=== PATIENT | male | born 1935 | race Caucasian/White ===

== ENCOUNTER 2017-08-28 10:09 | Inpatient (IN) | payer MEDICARE, OTHER ==
[2017-08-28] MEDS: LACTATED RINGER'S 1,000 ML IV (11:12)
[2017-08-28] MEDS: SOD CHLORIDE 0.9% 1,000 ML IV ×2 (11:12→14:01)
[2017-08-28 11:14] LABS: ADD MAN DIFF? NO
[2017-08-28 11:28] LABS: ABNORMAL IP MESSAGE 1; BASOPHILS % 0.1 % (0.0-2.0); LYMPHOCYTES # 0.6 10^3/ul (0.8-2.9); MEAN CORPUSCULAR HEMOGLOBIN 27.1 pg (29.0-33.0); MEAN CORPUSCULAR HGB CONC 32.7 g/dl (32.0-37.0); MEAN CORPUSCULAR VOLUME 82.8 fl (82.0-101.0); MEAN PLATELET VOLUME 9.6 fl (7.4-10.4); MONOCYTES % 8.4 % (0.0-11.0); NEUTROPHIL # 10.2 10^3/ul (1.6-7.5); NEUTROPHILS % 86.2 % (39.0-77.0); PLATELET COUNT 331 10^3/UL (140-415); POSITIVE DIFF @See below; RED BLOOD COUNT 6.64 10^6/ul (4.70-6.10); RED CELL DISTRIBUTION WIDTH 15.4 % (11.5-14.5)
[2017-08-28 11:28] LABS: WHITE BLOOD COUNT 11.8 10^3/ul (4.8-10.8)
[2017-08-28 11:36] LABS: INR 1.21; PROTIME 15.5 Sec (11.9-14.9); PT RATIO 1.2
[2017-08-28 11:37] LABS: PARTIAL THROMBOPLASTIN TIME 31.8 Sec (25.0-35.0)
[2017-08-28] MEDS: AZTREONAM 1 GM/NS (PMX) 50 ML IVPB (11:38)
[2017-08-28 11:49] LABS: LACTIC ACID 3.1 mmol/L (0.5-2.0)
[2017-08-28 11:52] LABS: ALANINE AMINOTRANSFERASE 28 IU/L (13-69); ALBUMIN 4.2 g/dl (3.3-4.9); ALKALINE PHOSPHATASE 102 IU/L (42-121); ANION GAP 21 (8-16); ASPARTATE AMINO TRANSFERASE 78 IU/L (15-46); BILIRUBIN,INDIRECT 0.9 mg/dl (0-1.1); BILIRUBIN,TOTAL 0.9 mg/dl (0.2-1.3); BLOOD UREA NITROGEN 43 mg/dl (7-20); CALCIUM 9.9 mg/dl (8.4-10.2); CARBON DIOXIDE 23 mmol/L (21-31); CHLORIDE 107 mmol/L (97-110); CREATINE KINASE 811 IU/L (23-200); CREATININE 1.16 mg/dl (0.61-1.24); GLUCOSE 139 mg/dl (70-220); SODIUM 147 mmol/L (135-144); TOTAL PROTEIN 8.4 g/dl (6.1-8.1)
[2017-08-28 12:03] LABS: TROPONIN-I 0.023 ng/ml (0.000-0.120)
[2017-08-28 12:21] LABS: ADD UMIC YES; UR ASCORBIC ACID NEGATIVE (NEGATIVE); UR BILIRUBIN (Dip) NEGATIVE (NEGATIVE); UR BLOOD (Dip) 3+ mg/dL (NEGATIVE); UR CLARITY SLIGHTLY CLOUDY (CLEAR); UR COLOR YELLOW (YELLOW); UR GLUCOSE (Dip) NEGATIVE (NEGATIVE); UR KETONES (Dip) 1+ mg/dL (NEGATIVE); UR LEUKOCYTE ESTERASE (Dip) NEGATIVE Leu/ul (NEGATIVE); UR MUCUS FEW /HPF (NONE SEEN); UR NITRITE (Dip) NEGATIVE (NEGATIVE); UR RBC > 182 /HPF (0-5); UR SPECIFIC GRAVITY (Dip) 1.023 (1.003-1.030); UR TOTAL PROTEIN (Dip) 1+ mg/dl (NEGATIVE); UR UROBILINOGEN (Dip) 1+ mg/dL (NEGATIVE); UR WBC 6 /HPF (0-5)
[2017-08-28] MEDS: VANCOMYCIN 1 GM (PMX) 250 ML IVPB (12:49)
[2017-08-28] MEDS ORDERED: ACETAMINOPHEN 325 MG TAB PO ×2 (13:00→14:30)
[2017-08-28] MEDS ORDERED: ONDANSETRON 4 MG INJ IV (13:00)
[2017-08-28] MEDS ORDERED: VANCOMYCIN IV PER PHARMACY XX (14:30)
[2017-08-28] MEDS ORDERED: NACL 0.9% 3 ML SYG IV (14:30)
[2017-08-28] MEDS ORDERED: ACETAMINOPHEN 650 MG SUPP PR (14:30)
[2017-08-28] MEDS ORDERED: HYDROCODONE/APAP (5/325) TAB PO ×2 (14:30)
[2017-08-28] MEDS ORDERED: DOCUSATE SODIUM 100 MG CAP PO (14:30)
[2017-08-28] MEDS ORDERED: MAGNESIUM HYDROXIDE 30ML CUP PO (14:30)
[2017-08-28] MEDS: CEFEPIME 1GM/50 ML (PMX) 50 ML IVPB ×2 (15:00→22:53)
[2017-08-28 15:28] LABS: CREATINE KINASE 656 IU/L (23-200)
[2017-08-28 15:28] LABS: B-TYPE NATRIURETIC PEPTIDE 838 PG/ML (0-450)
[2017-08-28 15:35] LABS: LACTIC ACID 2.4 mmol/L (0.5-2.0)
[2017-08-28] MEDS: VANCOMYCIN 750 MG in DEXTROSE 5% 150 ML IVPB (17:29)
[2017-08-28] MEDS: SOD CHLORIDE 0.45% 1,000 ML IV (17:30)
[2017-08-28 18:11] LABS: LACTIC ACID 1.9 mmol/L (0.5-2.0)
[2017-08-28] MEDS ORDERED: CLOTRIMAZOLE 10 MG TROCHE MT (21:00)
[2017-08-28] MEDS: CLOTRIMAZOLE 10 MG TROCHE MT (22:58)
[2017-08-29 06:08] LABS: ADD MAN DIFF? NO
[2017-08-29 06:11] LABS: BASOPHILS % 0.2 % (0.0-2.0); EOSINOPHILS % 0.3 % (0.0-7.0); HEMATOCRIT 45.9 % (42.0-52.0); HEMOGLOBIN 14.7 g/dl (14.0-18.0); LYMPHOCYTES # 1.2 10^3/ul (0.8-2.9); LYMPHOCYTES % 12.5 % (15.0-51.0); MEAN CORPUSCULAR HEMOGLOBIN 26.9 pg (29.0-33.0); MEAN CORPUSCULAR VOLUME 83.9 fl (82.0-101.0); MEAN PLATELET VOLUME 9.1 fl (7.4-10.4); MONOCYTES % 11.1 % (0.0-11.0); NEUTROPHILS % 75.6 % (39.0-77.0); PLATELET COUNT 279 10^3/UL (140-415); RED BLOOD COUNT 5.47 10^6/ul (4.70-6.10); RED CELL DISTRIBUTION WIDTH 14.2 % (11.5-14.5)
[2017-08-29 06:11] LABS: WHITE BLOOD COUNT 9.3 10^3/ul (4.8-10.8)
[2017-08-29] MEDS: SOD CHLORIDE 0.45% 1,000 ML IV ×2 (06:19→11:00)
[2017-08-29 06:30] LABS: CREATINE KINASE 483 IU/L (23-200)
[2017-08-29 06:31] LABS: LACTIC ACID 1.1 mmol/L (0.5-2.0)
[2017-08-29 06:34] LABS: MAGNESIUM 2.2 mg/dl (1.7-2.5)
[2017-08-29 06:34] LABS: PHOSPHORUS 2.9 mg/dl (2.5-4.9)
[2017-08-29 06:35] LABS: ALANINE AMINOTRANSFERASE 31 IU/L (13-69); ALKALINE PHOSPHATASE 73 IU/L (42-121); ANION GAP 12 (8-16); ASPARTATE AMINO TRANSFERASE 60 IU/L (15-46); BLOOD UREA NITROGEN 29 mg/dl (7-20); CALCIUM 8.7 mg/dl (8.4-10.2); CARBON DIOXIDE 24 mmol/L (21-31); CHLORIDE 109 mmol/L (97-110); CREATININE 0.79 mg/dl (0.61-1.24); GLUCOSE 104 mg/dl (70-220); POTASSIUM 3.8 mmol/L (3.5-5.1); SODIUM 141 mmol/L (135-144); TOTAL PROTEIN 6.3 g/dl (6.1-8.1)
[2017-08-29] MEDS: CEFEPIME 1GM/50 ML (PMX) 50 ML IVPB (08:49)
[2017-08-29] MEDS: CLOTRIMAZOLE 10 MG TROCHE MT ×5 (08:49→23:05)
[2017-08-29] MEDS: ENOXAPARIN 40 MG/0.4 ML SYG SC (08:51)
[2017-08-29] MEDS: VANCOMYCIN 1.5 GM in SOD CHLORIDE 0.9% 250 ML IVPB (14:12)
[2017-08-30 06:48] LABS: ANION GAP 8 (8-16); BLOOD UREA NITROGEN 20 mg/dl (7-20); CALCIUM 8.5 mg/dl (8.4-10.2); CARBON DIOXIDE 25 mmol/L (21-31); CHLORIDE 111 mmol/L (97-110); CREATINE KINASE 212 IU/L (23-200); CREATININE 0.68 mg/dl (0.61-1.24); GLUCOSE 84 mg/dl (70-220); MAGNESIUM 2.2 mg/dl (1.7-2.5); POTASSIUM 4.4 mmol/L (3.5-5.1); SODIUM 140 mmol/L (135-144)
[2017-08-30] MEDS: ENOXAPARIN 40 MG/0.4 ML SYG SC (09:12)
[2017-08-30] MEDS: CLOTRIMAZOLE 10 MG TROCHE MT ×4 (09:13→18:00)
[2017-08-30] MEDS: LIDOCAINE 1% (MPF) 5 ML VIAL SC (12:30)
[2017-08-30] MEDS: BISACODYL (EC) 5 MG TAB PO (12:35)
[2017-08-30] MEDS ORDERED: BISACODYL 10 MG SUPP PR (15:30)
[2017-08-30] MEDS: VANCOMYCIN 1.5 GM in SOD CHLORIDE 0.9% 250 ML IVPB (16:11)
[2017-08-30] MEDS ORDERED: PENDING SANTYL ORDER FOR WOUND CARE XX (18:30)
[2017-08-30] MEDS ORDERED: ALBUTEROL/IPRATROPIUM (NEB) 3 ML AMP HHN (23:00)
[2017-08-31 07:52] LABS: ADD MAN DIFF? NO
[2017-08-31 08:00] LABS: BASOPHILS % 0.5 % (0.0-2.0); EOSINOPHILS # 0.2 10^3/ul (0.0-0.5); EOSINOPHILS % 2.7 % (0.0-7.0); HEMOGLOBIN 14.4 g/dl (14.0-18.0); LYMPHOCYTES # 1.2 10^3/ul (0.8-2.9); LYMPHOCYTES % 14.6 % (15.0-51.0); MEAN CORPUSCULAR HEMOGLOBIN 27.8 pg (29.0-33.0); MEAN CORPUSCULAR HGB CONC 33.5 g/dl (32.0-37.0); MEAN PLATELET VOLUME 9.1 fl (7.4-10.4); MONOCYTES % 12.2 % (0.0-11.0); NEUTROPHIL # 5.6 10^3/ul (1.6-7.5); NEUTROPHILS % 69.5 % (39.0-77.0); PLATELET COUNT 300 10^3/UL (140-415); RED BLOOD COUNT 5.18 10^6/ul (4.70-6.10); RED CELL DISTRIBUTION WIDTH 13.9 % (11.5-14.5)
[2017-08-31 08:26] LABS: ANION GAP 12 (8-16); BLOOD UREA NITROGEN 16 mg/dl (7-20); CALCIUM 8.6 mg/dl (8.4-10.2); CARBON DIOXIDE 28 mmol/L (21-31); CHLORIDE 106 mmol/L (97-110); CREATININE 0.72 mg/dl (0.61-1.24); GLUCOSE 85 mg/dl (70-220); POTASSIUM 3.5 mmol/L (3.5-5.1); SODIUM 142 mmol/L (135-144)
[2017-08-31] MEDS: ENOXAPARIN 40 MG/0.4 ML SYG SC (09:19)
[2017-08-31] MEDS: NYSTATIN SUSP 5 ML CUP PO ×3 (12:30→21:57)
[2017-08-31] MEDS: CLINDAMYCIN 300 MG/D5W (PMX) 50 ML IVPB ×3 (12:48→23:28)
[2017-08-31] MEDS: LIDOCAINE 1% (MPF) 5 ML VIAL SC (13:30)
[2017-08-31] MEDS: LORAZEPAM 2 MG INJ IV ×3 (14:13→23:26)
[2017-09-01] MEDS: CLINDAMYCIN 300 MG/D5W (PMX) 50 ML IVPB ×2 (05:27→12:00)
[2017-09-01 05:52] LABS: ADD MAN DIFF? NO
[2017-09-01 05:55] LABS: WHITE BLOOD COUNT 7.7 10^3/ul (4.8-10.8)
[2017-09-01 05:55] LABS: BASOPHILS % 0.5 % (0.0-2.0); EOSINOPHILS # 0.1 10^3/ul (0.0-0.5); EOSINOPHILS % 1.6 % (0.0-7.0); HEMATOCRIT 46.1 % (42.0-52.0); HEMOGLOBIN 14.8 g/dl (14.0-18.0); LYMPHOCYTES # 0.8 10^3/ul (0.8-2.9); LYMPHOCYTES % 10.7 % (15.0-51.0); MEAN CORPUSCULAR HEMOGLOBIN 26.9 pg (29.0-33.0); MEAN CORPUSCULAR HGB CONC 32.1 g/dl (32.0-37.0); MEAN CORPUSCULAR VOLUME 83.8 fl (82.0-101.0); MEAN PLATELET VOLUME 8.8 fl (7.4-10.4); MONOCYTE # 0.9 10^3/ul (0.3-0.9); MONOCYTES % 11.3 % (0.0-11.0); NEUTROPHIL # 5.8 10^3/ul (1.6-7.5); NEUTROPHILS % 75.4 % (39.0-77.0); PLATELET COUNT 303 10^3/UL (140-415); RED CELL DISTRIBUTION WIDTH 13.5 % (11.5-14.5)
[2017-09-01 06:25] LABS: ANION GAP 12 (8-16); BLOOD UREA NITROGEN 19 mg/dl (7-20); CALCIUM 8.7 mg/dl (8.4-10.2); CARBON DIOXIDE 26 mmol/L (21-31); CHLORIDE 107 mmol/L (97-110); CREATININE 0.67 mg/dl (0.61-1.24); GLUCOSE 99 mg/dl (70-220); POTASSIUM 3.6 mmol/L (3.5-5.1); SODIUM 141 mmol/L (135-144)
[2017-09-01] MEDS: NYSTATIN SUSP 5 ML CUP PO ×2 (10:32→13:52)
[2017-09-01] MEDS: ENOXAPARIN 40 MG/0.4 ML SYG SC (10:34)
[2017-09-01] MEDS: LEVOFLOXACIN 750MG/D5W (PMX) 150 ML IVPB (11:56)
== END 2017-09-01 15:30 | disposition home health service (06) | DRG 871 ==
LOC: E/R 10:09 → MS2 12:49
PROC: 02HV33Z Insertion of Infusion Device into Superior Vena Cava, Percutaneous Approach (ICD-10-PCS; principal; 2017-08-30)
DX: A41.9 Sepsis, unspecified organism (principal); G92 Toxic encephalopathy; B37.0 Candidal stomatitis; R64 Cachexia; Z68.1 Body mass index [BMI] 19.9 or less, adult; E86.0 Dehydration; Z87.891 Personal history of nicotine dependence; N30.90 Cystitis, unspecified without hematuria; M25.461 Effusion, right knee; F31.9 Bipolar disorder, unspecified
CPT/HCPCS: 36415; 36569; 70450; 71045; 73562; 76882-RT; 76937; 80048; 80053; 81001; 82550; 83605; 83735; 83880; 84100; 84484; 85025; 85610; 85730; 87040; 87086; 92610; 93005; 93306; 96361; 96365; 96367; 97163; 97167; 97530; 99291-25